=== PATIENT | male | born 1950 | race American Indian/Alaskan Native ===

== ENCOUNTER 2017-10-29 10:28 | Emergency (ER) | payer MEDICARE, OTHER ==
[2017-10-29] MEDS ORDERED: NACL 0.9% 500 ML 500 ML IV ONE (10:47)
[2017-10-29] MEDS ORDERED: ZOFRAN ONE (11:09)
[2017-10-29 11:38] LABS: Basophils % (Auto) 0.2 % (0.0-1.8); Eosinophils % (Auto) 0.2 % (0.0-4.3); Hemoglobin 10.9 gm/dl (11.8-15.2); Lymphocytes # (Auto) 1.2 K/mm3 (1.2-5.4); Lymphocytes % (Auto) 12.4 % (13.4-35.0); Mean Corpuscular HGB Conc 32 % (32-34); Mean Corpuscular Hemoglobin 27 pg (28-32); Mean Corpuscular Volume 83 fl (84-94); Monocytes # (Auto) 0.7 K/mm3 (0.0-0.8); Monocytes % (Auto) 6.8 % (0.0-7.3); Platelet Count 181 K/mm3 (140-440); Red Cell Distribution Width 18.2 % (13.2-15.2)
[2017-10-29] MEDS ORDERED: NORMODYNE IV ONE ×2 (11:38)
[2017-10-29] MEDS ORDERED: ZOFRAN IV ONE (11:49)
[2017-10-29 11:52] VITALS: BP 180/106
[2017-10-29 11:56] LABS: Calcium 9.2 mg/dL (8.4-10.2)
[2017-10-29 11:56] LABS: INR 1.06 (0.87-1.13)
[2017-10-29 11:58] LABS: Alanine Aminotransferase 8 units/L (7-56); Albumin 3.6 g/dL (3.9-5)
[2017-10-29 11:59] LABS: Bilirubin,Direct < 0.2 mg/dL (0-0.2)
[2017-10-29] MEDS ORDERED: ADRENALIN ONE (12:10)
[2017-10-29] MEDS ORDERED: SODIUM BICARBONATE IV ONE (12:10)
[2017-10-29] MEDS ORDERED: NACL 0.9% 1000 ML 1,000 ML ONE (12:18)
--- NOTE | 2017-10-29 12:54 | Emergency Department Report ---
ED General Adult HPI - General Chief complaint: Neuro Symptoms/Deficit Stated complaint: R LEG NUMBNESS DIFF BREATH Time Seen by Provider: 10/29/17 11:10 Source: patient, family Mode of arrival: Wheelchair Limitations: Physical Limitation - History of Present Illness Initial comments: This is a patient that presents to the emergency department somewhat altered and unable to give a history. However he does speak coherently although the content is somewhat circular. As far as I can ascertain he awoke at about 5:30 in the morning a week. May be at or about that time he either developed shoulder pain or back pain which he describes as involving his entire back. He is not currently complaining of back nor chest pain. He does not complain of leg pain either. Apparently the EMS was summoned. The patient's is at the bedside. She tells me they were informed that "the vital signs were normal". In any case, I am uncertain as to whether the patient refused transport or not after the preliminary EMS assessment. However, sometime later the patient presented to the emergency department by private vehicle. When he arrived to triage the nurse noted that he was unable to move his right leg. He was immediately brought back for evaluation. When I started speaking to the patient he was altered with right leg weakness. I did not think this was an acute stroke syndrome. However, to expedite the patient's care I called a code stroke. In the meantime, I asked for the patient to be completely undress. Thereupon, I performed an examination of his peripheral pulses and could not find any pulses in his right leg. Indeed the pulses were diminished in the left leg but I could appreciate a femoral pulse on Doppler exam. The Doppler was negative for a right femoral pulse and all pulses distally. In my pain, the only thing that could cause this presentation on a probable basis is aortic dissection. Therefore, I added a CT angiograms of the aorta from the chest to the thigh. I paged the radiologist to prove this without a creatinine as I believed it was an acute emergency. I spoke to the field technician Dash who directed me to bring the patient immediately for angiography. This was done after I personally established and appropriate external jugular catheter from which the patient could be given IV contrast. - Related Data Allergies Allergy/AdvReac Type Severity Reaction Status Date / Time Beef Containing Products AdvReac Severe MOUTH Unverified 12/27/13 14:08 SWELLS ON OUTSIDE egg AdvReac Severe MOUTH Unverified 12/27/13 14:08 SWELLS ON OUTSIDE shellfish derived AdvReac Severe MOUTH Unverified 12/27/13 14:08 SWELLINS ON OUTSIDE ED Review of Systems ROS: Stated complaint: R LEG NUMBNESS DIFF BREATH Other details as noted in HPI Comment: Unobtainable due to pts medical conditions ED Past Medical Hx - Past Medical History Previous Medical History?: Yes Hx Hypertension: Yes Hx Congestive Heart Failure: Yes Hx Arthritis: Yes Additional medical history: SA node - Surgical History Past Surgical History?: Yes Hx Cholecystectomy: Yes (1995) - Social History Smoking Status: Former Smoker Substance Use Type: None ED Physical Exam - General Limitations: Altered Mental Status, Physical Limitation, Other (pale and ill- appearing) General appearance: lethargic, in distress - Head Head exam: Present: atraumatic - Eye Eye exam: Present: PERRL, EOMI. Absent: scleral icterus - ENT ENT exam: Present: mucous membranes dry - Neck Neck exam: Present: normal inspection. Absent: tenderness, meningismus - Respiratory Respiratory exam: Present: normal lung sounds bilaterally. Absent: respiratory distress - Cardiovascular Cardiovascular Exam: Present: regular rate, normal rhythm. Absent: systolic murmur, diastolic murmur, rubs, gallop - GI/Abdominal GI/Abdominal exam: Present: soft. Absent: distended, tenderness, guarding, rebound, rigid - Extremities Exam Extremities exam: Present: other (both lower extremities are cooler than the upper extremities. I do not appreciate dorsalis pedis or posterior tibial pulse in either leg. I performed a Doppler exam. I can find the femoral pulse on Doppler but no pulses in the right lower extremity) - Back Exam Back exam: Present: normal inspection - Neurological Exam Neurological exam: Present: CN II-XII intact, other (complete paresis also sensation of the right lower extremity.) - Psychiatric Psychiatric exam: Present: anxious, flat affect - Skin Skin exam: Present: pallor, other (lower extremities) ED Course Vital Signs 10/29/17 10/29/17 10:40 11:40 Temperature 97.6 F Pulse Rate 64 Respiratory 18 Rate Blood Pressure 143/78 180/106 O2 Sat by Pulse 100 Oximetry - Reevaluation(s) Reevaluation #1: The patient had a presumptive diagnosis of aortic dissection. So I immediately accompanied him to x-ray where I dosed him for his angiogram. 10/29/17 14:16 Reevaluation #2: As soon as I looked at the first few initial angio image I directed the disease intervention specialist to call the [facility] transfer center so I could speak with CT surgery. Immediately after the procedure was done I brought the patient back to the emergency department. I spoke with the [facility] transfer staff. I impressed upon them that the patient was critical and could not survive very long without cardiovascular surgery intervention. I directed the charge nurse to put a helicopter on standby. However, despite this the cardiovascular surgeon from [facility] never called back. Notwithstanding, it was not long anyway after I spoke to the transfer center that I immediately returned to the bedside to reassess the patient. I found him in asystole and apneic. Code was immediately begun. Patient was given several rounds of epinephrine as well as bicarbonate. An ultrasound showed cardiac standstill. Despite this I performed the pericentesis although this was probably futile. I was able to which her off about 10 mL of serosanguineous fluid. On ultrasound, the dissection possibly extended his dissection into the pericardial sac although the windows were poor due to the patient's habitus. At one point during the code I did see cardiac activity. However at no point did we see any signs of life or any transmitted peripheral pulses. Finally the patient was pronounced in cardiac standstill as determined by ultrasound. 10/29/17 14:23 - Intubation Time Out Performed: Yes Additional Comments: Crash intubation unsuccessfull. Tracheal appears total displaced by mediastinal hematoma. I could however ventilate the patient with an OPA. The glottis was never visible. In addition, a bougie could not be passed; it appear to be hitting obstruction. - Paracentesis Consent Obtained: emergent situation Time Out Performed: No Indication: other Additional Comments: A pericardiocentesis was performed. I was able to withdraw perhaps 10 mL of serosanguineous fluid but that's all. ED Medical Decision Making - Lab Data Result diagrams: 10/29/17 11:34 10/29/17 10:48 Laboratory Results - last 24 hr 10/29/17 10/29/17 10/29/17 10:48 11:20 11:34 WBC 10.1 RBC 4.10 Hgb 10.9 L Hct 34.0 L MCV 83 L MCH 27 L MCHC 32 RDW 18.2 H Plt Count 181 Lymph % (Auto) 12.4 L Cabell % (Auto) 6.8 Eos % (Auto) 0.2 Baso % (Auto) 0.2 Lymph # 1.2 Cabell # 0.7 Eos # 0.0 Baso # 0.0 Seg Neutrophils % 80.4 H Seg Neutrophils # 8.1 H PT INR APTT Thrombin Time Sodium 137 Potassium 4.5 Chloride 97.6 L Carbon Dioxide 19 L Anion Gap 25 BUN 28 H Creatinine 2.1 H Estimated GFR 38 BUN/Creatinine Ratio 13 Glucose 231 H POC Glucose 261 H Lactic Acid Calcium 9.2 Total Bilirubin Direct Bilirubin AST ALT Alkaline Phosphatase Troponin T 0.016 NT-Pro-B Natriuret Pep Total Protein Albumin Albumin/Globulin Ratio 10/29/17 10/29/17 10/29/17 11:34 11:34 11:34 WBC RBC Hgb Hct MCV MCH MCHC RDW Plt Count Lymph % (Auto) Cabell % (Auto) Eos % (Auto) Baso % (Auto) Lymph # [place] # Eos # Baso # Seg Neutrophils % Seg Neutrophils # PT 14.4 INR 1.06 APTT 32.0 Thrombin Time 16.1 Sodium Potassium Chloride Carbon Dioxide Anion Gap BUN Creatinine Estimated GFR BUN/Creatinine Ratio Glucose POC Glucose Lactic Acid Calcium Total Bilirubin Direct Bilirubin AST ALT Alkaline Phosphatase Troponin T NT-Pro-B Natriuret Pep 234.5 Total Protein Albumin Albumin/Globulin Ratio 10/29/17 10/29/17 11:34 11:48 WBC RBC Hgb Hct MCV MCH MCHC RDW Plt Count Lymph % (Auto) [place] % (Auto) Eos % (Auto) Baso % (Auto) Lymph # [place] # Eos # Baso # Seg Neutrophils % Seg Neutrophils # PT INR APTT Thrombin Time Sodium Potassium Chloride Carbon Dioxide Anion Gap BUN Creatinine Estimated GFR BUN/Creatinine Ratio Glucose POC Glucose Lactic Acid 3.90 H* Calcium Total Bilirubin 0.60 Direct Bilirubin < 0.2 AST 15 ALT 8 Alkaline Phosphatase 84 Troponin T NT-Pro-B Natriuret Pep Total Protein 7.8 Albumin 3.6 L Albumin/Globulin Ratio 0.9 - EKG Data -: EKG Interpreted by Me EKG shows normal: sinus rhythm, intervals, QRS complexes, ST-T waves Rate: normal, bradycardia - EKG Data Interpretation: nonspecific ST-T wave sanna, other (borderline left axis deviation ) - Radiology Data Radiology results: report reviewed interpreted by me: I went to the CT suite and immediately upon first angiography images there was apparent that the patient had an aortic dissection. I asked the radiologist to come out of his office and review these films. He concurred. The dissection started sexually close to the assisted the water right after the takeoff of the left common carotid artery which was not involved. The false lumen extended throughout the aorta that has thoracic and abdominal into the left common iliac artery. In addition the celiac axis SMA and a right renal artery were perfused. Left renal artery did not show contrast as it arose from the full length there was a fluid density surrounding the aortic arch which was consistent with blood and violation adventitia of the aorta. I believe the aorta experienced a free rupture. Critical Care Time: Yes Critical care time in (mins) excluding proc time.: 100 Critical care attestation.: If time is entered above; I have spent that time in minutes in the direct care of this critically ill patient, excluding procedure time. ED Disposition Clinical Impression: Aortic dissection, thoracoabdominal, Cardiac arrest Disposition: [id number] HOSPICE- MED FAC Is pt being admited?: No Does the pt Need Aspirin: No Condition: Stable Referrals: PRIMARY CARE, [Primary Care Provider] - 3-5 Days Time of Disposition: 14:36
--- NOTE | 2017-10-29 13:06 | Cat Scan Report ---
CT HEAD WITHOUT CONTRAST: HISTORY: Neurological deficit. TECHNIQUE: Sequential 2.5mm CT images. COMPARISON: none. FINDINGS: Cerebral Parenchyma: Within normal limits. Cerebellum: Within normal limits. Brainstem: Within normal limits. Ventricles: Normal. Sella: Normal. Extra-axial spaces: Normal. Basal Cisterns: Normal. Intracranial Hemorrhage: None. Midline Shift: None. Calvarium: Normal. Sinuses: Normal. Mastoid Air Cells: Normal. Visualized Orbits: Normal. IMPRESSION: Cranial CT scan within normal limits.
--- NOTE | 2017-10-29 13:14 | Cat Scan Report ---
CTA CHEST: CTA ABDOMEN PELVIS: HISTORY: chest pain, back pain. COMPARISON: none. TECHNIQUE: Helical CT in 1.25mm intervals following IV contrast. Sagittal and coronal reformatted images. Rotational MIP images. FINDINGS: Contrast bolus is satisfactory. There is a large aortic dissection which originates from the posterior aortic arch just after the takeoff of the left common carotid artery. The dissection flap extends throughout the descending thoracic aorta, abdominal aorta, left common iliac artery, left external iliac artery and terminates near the origin of the left superficial femoral artery. The celiac axis, SMA and right renal artery originate from the true lumen and appear adequately perfused. The left renal artery and JAIDA arise from the false lumen. A part of the dissection flap appears to enter the orifice of the left renal artery. 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 The JAIDA is adequately opacified. There is suggestion of intermediate density fluid surrounding the aortic arch and descending thoracic aorta consistent with blood. Density of this fluid measures 80 Hounsfield units. This suggests a small area of aortic rupture although it is not clearly demonstrated on the CT images. Mild cardiomegaly. No pericardial effusion. Small bilateral layering pleural effusions are identified. The lung parenchyma is within normal limits. No pneumothorax. The liver, spleen, pancreas, adrenal glands, visualized bowel loops and appendix are within normal limits. Scattered diverticula in the sigmoid colon are noted. The right kidney disease normal IV contrast perfusion and contains a few tiny simple cysts. There is essentially no perfusion to the left kidney. Scattered cysts are also suggested within the left kidney. The ureters, bladder and prostate gland are unremarkable. IMPRESSION: Long segment aortic dissection as outlined above. The dissection originates from the posterior aortic arch and extends to the left external iliac artery/left superficial femoral artery. The left renal artery is occluded with nonperfusion of the left kidney. There is intermediate density fluid in the mediastinum concerning for aortic rupture although the site of leakage is not clearly demonstrated on CTA. Mild cardiomegaly and small pleural effusions. Mild sigmoid diverticulosis. These findings were discussed with Dr. Jung of the emergency department at the CT machine during the examination at 1200 hrs.
== END 2017-10-29 17:00 ==
LOC: ED 10:28
DX: I71.03 Dissection of thoracoabdominal aorta (principal); I46.9 Cardiac arrest, cause unspecified
CPT/HCPCS: 36415; 70450; 71275; 74174; 80048; 80074; 82140; 82962; 83880; 84484; 85025; 85610; 85670; 85730; 93005; 93010; 96374; 96375; 99291; 99292; J0171; J2405; J7030; Q9967